=== PATIENT | male | born 1985 | race Caucasian/White ===

== ENCOUNTER → 2018-11-28 | Outpatient (REF) | payer BC ==
[2018-11-28 22:22] LABS: CHLAMYDIA DNA AMPLIFICATION NEGATIVE (NEGATIVE); GC DNA AMPLIFICATION NEGATIVE (NEGATIVE)
== END ==
LOC: M SFHCLERA 14:32
PROVIDERS: ATTEND Nurse Practitioner Family
DX: R30.0 Dysuria (principal)